=== PATIENT | male | born 1965 | race Caucasian/White ===

== ENCOUNTER 2020-11-06 14:43 | Emergency (ER) | payer OTHER, BC ==
[2020-11-06 16:47] LABS: HEMOGLOBIN 15.9 gm/dl (14.0-17.5); RED BLOOD COUNT 4.98 M/UL (4.20-5.50); WHITE BLOOD COUNT 8.9 K/UL (4.5-11.0)
[2020-11-06 17:15] LABS: BUN/CREATININE RATIO 10 (0-10)
== END 2020-11-06 19:09 | disposition home or self-care (01) ==
LOC: ER1 14:43
PROVIDERS: Physician Assistant
DX: S20.211A Contusion of right front wall of thorax, initial encounter (principal); V49.40XA Driver injured in collision with unspecified motor vehicles in traffic accident, initial encounter; Y92.39 Other specified sports and athletic area as the place of occurrence of the external cause
CPT/HCPCS: 71260; 80053; 82550; 82553; 83874; 84484; 85025; 93005; 99284; Q9967

== ENCOUNTER 2020-11-21 15:33 | Emergency (ER) | payer BC ==
[2020-11-21] MEDS ORDERED: TORADOL 10 MG T10 MG PO (17:04)
== END 2020-11-21 17:15 | disposition home or self-care (01) ==
LOC: ER1 15:33
DX: S20.214A Contusion of middle front wall of thorax, initial encounter (principal); F17.200 Nicotine dependence, unspecified, uncomplicated; W22.8XXA Striking against or struck by other objects, initial encounter
CPT/HCPCS: 71045; 93005; 96372; 99285; J1885